=== PATIENT | female | born 1950 | race Caucasian/White ===

== ENCOUNTER → 2017-05-02 | Outpatient (CLI) | payer MEDICARE ==
[~2017-05-02] MED LIST: ASPIRIN ADULT L81 M2 PO; ATIVAN GENERIC0.5 MG PO; CARVEDILOL 25MG25 MG PO; CELEXA 20MG TAB20 MG PO; DICLOFENAC SODI75 M3 PO; DOXYCYCLINE100 M1 PO; FUROSEMIDE 40MG40 M1 PO; HYDROCODONE BIT1 T44 PO; KLOR-CON M2020 ME1 PO; LEVAQUIN500 MG PO; LEVOTHYROXINE0.05 MG NG; LISINOPRIL 5MG T5 MG NG; LODINE200 MG PO; LOPRESSOR 25MG.25 MG PO; LOSARTAN POTASS50 MG PO; MELOXICAM15 MG; PERCOCET 325 MG1 TA4 PO; SIMVASTATIN10 MG PO; TRAMADOL 50MG T50 MG PO
[2017-05-02 10:44] LABS: BUN 16 mg/dL (7-18)
[2017-05-02 10:46] LABS: GFR (ESTIMATED) 124 ML/MIN (59-)
--- NOTE | 2017-05-02 16:01 | RADIOLOGY REPORT PS360 ---
PROCEDURE: 2-D M-mode and color Doppler study INDICATIONS FOR THE TEST: Chest pain X COPD Heart Murmur Tobacco Smoking PalpitationsX Fatigue Syncope Edema HypertensionXDiabetes MellitusX Rheumatic Fever SOB DOEXObesity Hyperlipidemia Family History HD Additional History AVR BOVINE PATIENT INFORMATION HEIGHT: 61 WEIGHT:173 GENDER: Female B/P:120/80 2-D/M-MODE INTERPRETATION: 2-D MEASUREMENTS OBSERVED VALUES IN CMS Right Ventricular Dimension (RVDd) 1.0 Interventricular Septum (Thickness)(IVsd) 1.0 Left Ventricular Internal Dimensions(LVIDd) 5.0 Left Ventricular Posterior Wall (Thickness)(LVPWd) 1.3 Aortic Root 3.9 Aortic Cusp Separation 1.7 Left Atrial Dimensions (LAD) 2.5 2D 1. Left atrium is qualitatively moderately enlarged, left ventricle is normal size, there is mild concentric left ventricular hypertrophy, visually estimated ejection fraction of 55% with no obvious regional wall motion abnormality. 2. The right atrium and right ventricle are relatively normal size and function. 3. There is mild prosthetic valve noted in the aortic position valve associated. 4. The mitral valve has dense mitral annular calcification. 5. The pulmonic valve is poorly visualized. 6. The tricuspid valve is grossly normal. 7. No significant pericardial effusion noted. DOPPLER INTERROGATION: 1. The maximum aortic out flow velocity across the prosthetic valve is 2.64 m/s, resulting in a mean gradient across valve of 15 mmHg, this does not represent significant aortic outflow obstruction, there is mild aortic insufficiency. 2. The mitral inflow velocity within normal range, there is no mitral stenosis, there is mild mitral regurgitation, grade 1 diastolic dysfunction seen with tissue Doppler evidence of raised left atrial pressure. 3. There is mild tricuspid regurgitation noted, tricuspid and enteric velocity insufficient for calculation of the right ventricular systolic pressure. CONCLUSION: 1. Moderately enlarged left atrium, normal left ventricular size, mild concentric left ventricular hypertrophy, visually estimated ejection fraction of 55% with no obvious regional wall motion abnormality, grade 1 diastolic dysfunction seen with tissue Doppler evidence of raised left atrial pressure. 2. 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 3. Mild mitral and tricuspid regurgitation. 4. No significant pericardial effusion noted.
== END ==
LOC: LAB 07:37 → RT 07:37
PROVIDERS: Internal Medicine Adolescent Medicine
DX: R07.9 Chest pain, unspecified (principal); R06.09 Other forms of dyspnea; R94.31 Abnormal electrocardiogram [ECG] [EKG]; R55 Syncope and collapse; R00.2 Palpitations; I10 Essential (primary) hypertension; E78.5 Hyperlipidemia, unspecified; E03.9 Hypothyroidism, unspecified; E11.9 Type 2 diabetes mellitus without complications; Z95.2 Presence of prosthetic heart valve

== ENCOUNTER → 2017-05-29 | Outpatient (CLI) | payer MEDICARE | LOC: RT 12:56 | DX: G47.33 Obstructive sleep apnea (adult) (pediatric) (principal); G47.30 Sleep apnea, unspecified; I10 Essential (primary) hypertension; G47.10 Hypersomnia, unspecified; R06.83 Snoring ==